=== PATIENT | female | born 1995 | race African-American/Black ===

== ENCOUNTER 2023-07-03 12:37 | Outpatient (CLI) | payer OTHER | END 2023-07-03 12:38 | disposition home or self-care (01) | LOC: CSHULT 12:37 | PROVIDERS: ATTEND Nurse Practitioner Women's Health | DX: Z34.02 Encounter for supervision of normal first pregnancy, second trimester (principal); Z3A.27 27 weeks gestation of pregnancy | CPT/HCPCS: 76805 ==

== ENCOUNTER 2023-09-28 12:03 | Inpatient (IN) | payer OTHER ==
[~2023-09-28 12:03] MED LIST: Bupivacaine 0.25% HCL 30 ML VIAL ONE; Terbutaline Sulfate 1 MG/ML VIAL ONE
[2023-09-28] MEDS ORDERED: Misoprostol 200 MCG TAB PR PRN (12:35)
[2023-09-28] MEDS ORDERED: HYDROcodone/Acetaminophen 5/325 mg Tablet PO PRN (12:35)
[2023-09-28] MEDS ORDERED: Diphenoxylate HCl/Atropine Tablet PO PRN (12:35)
[2023-09-28] MEDS ORDERED: Promethazine HCl 25 MG/ML VIAL IM PRN ×4 (12:35→20:26)
[2023-09-28] MEDS ORDERED: Carboprost 250 MCG/ML AMP IM PRN (12:35)
[2023-09-28] MEDS ORDERED: Tranexamic Acid 1,000 MG/10 ML VIAL IVP PRN (12:35)
[2023-09-28] MEDS ORDERED: Methylergonovine 0.2 MG/ML VIAL IM PRN (12:35)
[2023-09-28] MEDS ORDERED: Lidocaine 1% (PF) 30 ML VIAL SC PRN (12:35)
[2023-09-28] MEDS ORDERED: Ibuprofen 800 MG TAB PO PRN (12:35)
[2023-09-28] MEDS ORDERED: Ondansetron PF 4 MG/2 ML Vial IVP PRN ×5 (12:35→20:26)
[2023-09-28] MEDS ORDERED: hydrALAZINE 20 MG/ML VIAL SLOW IVP PRN ×2 (12:35→20:26)
[2023-09-28] MEDS ORDERED: Acetaminophen 500 MG TAB PO PRN (12:35)
[2023-09-28] MEDS ORDERED: fentaNYL 50 mcg/mL 1 mL Vial SLOW IVP PRN ×2 (12:35→18:58)
[2023-09-28 12:41] VITALS: BMI 30.7
[2023-09-28] MEDS ORDERED: Lactated Ringer's 1,000 ML IV SCH (12:45)
[2023-09-28] MEDS ORDERED: Oxytocin 30 units/NS 500 ML 500 ML IV SCH ×3 (12:45)
[2023-09-28] MEDS ORDERED: Penicillin G Potassium 5 MILL.UNITS in Sodium Chloride 0.9% 100 ML IVPB SCH (13:00)
[2023-09-28] MEDS ORDERED: fentaNYL/Ropivacaine Epidural 100 ML ONE (13:02)
[2023-09-28 13:36] LABS: Hematocrit 30.9 % (34.9-44.5); Hemoglobin 10.3 g/dL (12.0-15.5); Mean Corpuscular HGB CONC 33.3 g/dL (32.0-36.0); Mean Corpuscular Hemoglobin 29.3 pg (27.0-33.0); Platelet Count 234 10x3/uL (150-450); RBC Distribution Width 13.3 % (11.5-14.5); Red Blood Cell (RBC) Count 3.51 10x6/uL (3.90-5.03); White Blood Cell (WBC) Count 11.7 10x3/uL (3.5-10.5)
[2023-09-28 14:08] LABS: HBSAg Index 0.19 S/CO (0-0.99); Hep B Surf Ag - L&D Non-Reactive S/CO (NonReactive)
[2023-09-28 14:09] LABS: Syphilis Antibody Nonreactive (Nonreactive); Syphilis Antibody Index 0.04 S/CO (<1.00 Non-Reactive)
[2023-09-28] MEDS ORDERED: Moisturizing Cream (Eucerin) 113 GM JAR TOP PRN ×2 (16:11→18:58)
[2023-09-28] MEDS ORDERED: Naloxone HCl 0.4 mg/ml Vial IVP PRN ×4 (16:11→18:58)
[2023-09-28] MEDS ORDERED: ePHEDrine Sulfate 50 MG/10 ML VIAL SLOW IVP PRN (16:11)
[2023-09-28] MEDS ORDERED: Lactated Ringer's 500 ML IV PRN (16:11)
[2023-09-28] MEDS ORDERED: Acetaminophen 325 MG TAB PO PRN (16:11)
[2023-09-28] MEDS ORDERED: diphenhydrAMINE 50 MG/ML VIAL IVP PRN ×2 (16:11→18:58)
[2023-09-28] MEDS ORDERED: Communication Order-Pharmacy FS SCH ×2 (16:15→19:00)
[2023-09-28] MEDS ORDERED: fentaNYL 2 mcg/Ropivacaine 0.2% Epidural 100 ML CADD EPIDURAL SCH (16:15)
[2023-09-28] MEDS ORDERED: Penicillin G 2.5 MILL.units 2.5 MILL.UNITS in Premix 1 BAG IVPB SCH (17:00)
[2023-09-28] MEDS ORDERED: Azithromycin 500 MG VIAL ONE (17:19)
[2023-09-28] MEDS ORDERED: CEFAZOLIN 2 GM VIAL ONE (17:19)
[2023-09-28] MEDS ORDERED: fentaNYL 50 mcg/mL 1 mL Vial ONE (17:38)
[2023-09-28] MEDS ORDERED: EPINEPHrine 1 MG/10 ML Abboject SYRINGE ONE (17:39)
[2023-09-28] MEDS ORDERED: Lidocaine 2% MPF 10 ML AMP (For Epidural Use) ONE (17:39)
[2023-09-28] MEDS ORDERED: Morphine PF 10 MG/10 ML VIAL ONE (17:54)
[2023-09-28] MEDS ORDERED: Ketorolac Tromethamine 30 MG/ML VIAL ONE (17:54)
[2023-09-28] MEDS ORDERED: Phenylephrine 40 MG/NS 250 ML 250 ML ONE (17:54)
[2023-09-28] MEDS ORDERED: diphenhydrAMINE 50 MG/ML VIAL ONE (18:28)
[2023-09-28] MEDS ORDERED: Ondansetron PF 4 MG/2 ML Vial ONE (18:28)
[2023-09-28] MEDS ORDERED: Dexamethasone 4 mg/ml Vial ONE (18:28)
[2023-09-28] MEDS ORDERED: Oxytocin 10 UNITS/ML VIAL ONE ×2 (18:28→18:30)
[2023-09-28] MEDS ORDERED: Promethazine HCl 25 MG SUPP PR PRN (18:58)
[2023-09-28] MEDS ORDERED: Meperidine HCl/PF 25 MG/ML VIAL SLOW IVP PRN (18:58)
[2023-09-28] MEDS ORDERED: Naloxone HCl 0.4 mg/ml Vial IV PRN (18:58)
[2023-09-28] MEDS ORDERED: diphenhydrAMINE 25 MG CAP PO PRN (20:26)
[2023-09-28] MEDS ORDERED: Lanolin Ointment 7 GM TUBE TOP PRN (20:26)
[2023-09-28] MEDS ORDERED: Boostrix 0.5 ML (Tdap) VIAL (>/=7 yrs of age) IM ONE (20:26)
[2023-09-28] MEDS ORDERED: Bisacodyl 10 MG SUPP PR PRN (20:26)
[2023-09-28] MEDS: Ferrous Sulfate 325 MG TAB PO SCH (23:25)
[2023-09-28] MEDS: Docusate 100 MG CAP PO SCH (23:25)
[2023-09-29] MEDS: Ketorolac Tromethamine 30 MG/ML VIAL IVP PRN ×2 (03:56→09:17)
[2023-09-29 04:31] LABS: Hematocrit 26.4 % (34.9-44.5); Hemoglobin 8.7 g/dL (12.0-15.5); Mean Corpuscular Hemoglobin 28.9 pg (27.0-33.0); Mean Corpuscular Volume 87.7 fl (81.6-98.3); Mean Platelet Volume 11.7 fl (7.4-10.4); Platelet Count 198 10x3/uL (150-450); RBC Distribution Width 13.1 % (11.5-14.5); Red Blood Cell (RBC) Count 3.01 10x6/uL (3.90-5.03); White Blood Cell (WBC) Count 19.5 10x3/uL (3.5-10.5)
[2023-09-29] MEDS: Docusate 100 MG CAP PO SCH ×2 (08:38→21:42)
[2023-09-29] MEDS: Prenatal Vitamin 1 TAB PO SCH (08:38)
[2023-09-29] MEDS: Ferrous Sulfate 325 MG TAB PO SCH ×2 (08:38→21:42)
[2023-09-29] MEDS: Simethicone Chewable 80 MG TAB PO PRN (09:14)
[2023-09-29] MEDS: HYDROcodone/Acetaminophen 5/325 mg Tablet PO PRN ×3 (13:31→21:42)
[2023-09-29] MEDS: Ibuprofen 800 MG TAB PO SCH (21:42)
[2023-09-30] MEDS: Ibuprofen 800 MG TAB PO SCH ×3 (05:11→22:33)
[2023-09-30] MEDS: HYDROcodone/Acetaminophen 5/325 mg Tablet PO PRN ×5 (05:12→22:36)
[2023-09-30] MEDS: Docusate 100 MG CAP PO SCH ×2 (08:44→22:33)
[2023-09-30] MEDS: Prenatal Vitamin 1 TAB PO SCH (08:44)
[2023-09-30] MEDS: Ferrous Sulfate 325 MG TAB PO SCH ×2 (08:44→22:32)
[2023-10-01] MEDS: HYDROcodone/Acetaminophen 5/325 mg Tablet PO PRN ×2 (05:23→12:22)
[2023-10-01] MEDS: Ibuprofen 800 MG TAB PO SCH ×2 (05:23→13:51)
[2023-10-01 07:55] VITALS: BP 106/60; TEMP 97.9
[2023-10-01] MEDS: Prenatal Vitamin 1 TAB PO SCH (09:09)
[2023-10-01] MEDS: Simethicone Chewable 80 MG TAB PO PRN (09:09)
[2023-10-01] MEDS: Ferrous Sulfate 325 MG TAB PO SCH (09:09)
[2023-10-01] MEDS: Docusate 100 MG CAP PO SCH (09:09)
== END 2023-10-01 14:40 | disposition home or self-care (01) | DRG 788 ==
LOC: CSHLD 12:03 → CSHPP 22:10
PROVIDERS: ADMIT Family Medicine; ATTEND Family Medicine
PROC: 10D00Z1 Extraction of Products of Conception, Low, Open Approach (ICD-10-PCS; principal; 2023-09-28)
PROC: 10907ZC Drainage of Amniotic Fluid, Therapeutic from Products of Conception, Via Natural or Artificial Opening (ICD-10-PCS; 2023-09-28)
PROC: 10H07YZ Insertion of Other Device into Products of Conception, Via Natural or Artificial Opening (ICD-10-PCS; 2023-09-28)
DX: O99.824 Streptococcus B carrier state complicating childbirth (principal); Z3A.38 38 weeks gestation of pregnancy; Z37.0 Single live birth; O76 Abnormality in fetal heart rate and rhythm complicating labor and delivery
CPT/HCPCS: 36415; 51702; 85027; 86780; 86850; 86900; 86901; 87340; J0171; J0456; J1100; J1200; J1885; J2274; J2405; J2540; J2590; J3010; J3105; J3490; J7120; S0020